=== PATIENT | male | born 1970 | race Caucasian/White ===

== ENCOUNTER → 2016-12-05 | Outpatient (CLI) | payer MEDICARE, MEDICAID ==
[~2016-12-05] MED LIST: ISOVUE-370 76% 100ML VIAL (Q9967) As Ordered ONE
--- NOTE | 2016-12-05 16:25 | REP ---
CT HEAD WITHOUT AND WITH CONTRAST: HISTORY: Confusion. CONTRAST: Isovue-370, 75 mL. There is no intraparenchymal hemorrhage, mass or midline shift. A small developmental venous anomaly is present in the right parietal lobe. There is no abnormal enhancement. The ventricular system is normal in appearance. There is no extracerebral collection. The visualizes sinuses are clear. IMPRESSION: There is no intracranial lesion. Signed by Chuck Nagel MD 12/05/2016 04:29 P
== END ==
LOC: M RAD 15:34
PROVIDERS: ATTEND Psychiatry & Neurology Neurology
DX: R41.0 Disorientation, unspecified (principal)
CPT/HCPCS: 70470; Q9967

== ENCOUNTER 2018-02-01 14:51 | Emergency (ER) | payer MEDICARE, MEDICAID, SELFPAY | END 2018-02-01 16:45 | disposition home or self-care (01) | LOC: M ED 14:51 | DX: S99.912A Unspecified injury of left ankle, initial encounter (principal); X50.9XXA Other and unspecified overexertion or strenuous movements or postures, initial encounter; Y92.018 Other place in single-family (private) house as the place of occurrence of the external cause; J44.9 Chronic obstructive pulmonary disease, unspecified; G43.909 Migraine, unspecified, not intractable, without status migrainosus; F41.9 Anxiety disorder, unspecified; M81.0 Age-related osteoporosis without current pathological fracture; K44.9 Diaphragmatic hernia without obstruction or gangrene | CPT/HCPCS: 73610 ==

== ENCOUNTER 2018-02-08 20:25 | Emergency (ER) | payer MEDICARE, MEDICAID ==
[2018-02-08] MEDS: CLINDAMYCIN 150 MG CAP PO (20:43)
[2018-02-08] MEDS: KETOROLAC TROMETHAMINE 10 MG TAB PO (20:43)
[2018-02-08] MEDS: NORCO 5/325MG TABLET (BULK FOR ED) PO (20:44)
== END 2018-02-08 20:50 | disposition home or self-care (01) ==
LOC: M ED 20:25
DX: M76.62 Achilles tendinitis, left leg (principal); J44.9 Chronic obstructive pulmonary disease, unspecified; F17.210 Nicotine dependence, cigarettes, uncomplicated
CPT/HCPCS: 99283

== ENCOUNTER 2018-07-03 16:31 | Emergency (ER) | payer MEDICARE, MEDICAID ==
[~2018-07-03] VITALS: Ht 165.1 cm; Wt 48.6 kg
[~2018-07-03 16:31] MED LIST changes: +CLEO300C2 PO; +COMBAER6; -ISOVUE-370 76% 100ML VIAL (Q9967) As Ordered ONE; +KETO10TAB PO; +MIRT15TA3; +NORCOTAB PO; +SPIR1CAP INH
[2018-07-03 16:32] VITALS: BP 147/87
== END 2018-07-03 19:11 | disposition left against medical advice (07) ==
LOC: M ED 16:31
DX: Z53.29 Procedure and treatment not carried out because of patient's decision for other reasons (principal)

== ENCOUNTER 2018-11-04 13:36 | Emergency (ER) | payer MEDICARE, MEDICAID ==
[~2018-11-04] VITALS: Ht 165.1 cm; Wt 105.0 kg
[~2018-11-04 13:36] MED LIST changes: +HYDR-3715 PO; -NORCOTAB PO
[2018-11-04 13:37] VITALS: BP 142/93
[2018-11-04] MEDS ORDERED: SPIR1CAP (13:42)
[2018-11-04] MEDS ORDERED: COMBAER6 (13:42)
[2018-11-04] MEDS ORDERED: ADACEL/BOOSTRIX VACCINE (DIPHTH/PERTUSS/ACELL/TETANUS)0.5ML SYR (90715) IM ONE (14:30)
[2018-11-04] MEDS ORDERED: LIDOCAINE W/EPINEPHRINE 1% 20ML VIAL SC ONE (14:30)
[2018-11-04] MEDS ORDERED: NEOSPORIN OINT 0.9 GM PKT (FLOOR STOCK) TOP ONE (15:00)
[2018-11-05] MEDS ORDERED: KEFL500C17 PO (09:21)
== END 2018-11-04 15:18 | disposition home or self-care (01) ==
LOC: M ED 13:36
DX: S81.011A Laceration without foreign body, right knee, initial encounter (principal); W26.0XXA Contact with knife, initial encounter; Y92.099 Unspecified place in other non-institutional residence as the place of occurrence of the external cause; Y93.89 Activity, other specified; Y99.9 Unspecified external cause status; I10 Essential (primary) hypertension; G43.909 Migraine, unspecified, not intractable, without status migrainosus; Z72.0 Tobacco use; F12.10 Cannabis abuse, uncomplicated; Z79.899 Other long term (current) drug therapy

== ENCOUNTER 2018-11-05 07:13 | Emergency (ER) | payer MEDICARE, MEDICAID ==
[~2018-11-05] VITALS: Ht 165.1 cm; Wt 47.7 kg
[~2018-11-05 07:13] MED LIST changes: +SPIR1CAP
[2018-11-05] MEDS ORDERED: KETOROLAC 60 MG/2 ML VIAL (J1885) IM ONE (07:30)
[2018-11-05] MEDS ORDERED: KEFL500C17 PO (09:21)
[2018-11-05 09:26] VITALS: BP 154/95
--- NOTE | 2018-11-05 13:48 | REP ---
RIGHT KNEE, FOUR VIEWS: HISTORY: Possible foreign body. There is no acute fracture or dislocation. The joint spaces are normal in appearance. There is no radiopaque foreign body. IMPRESSION: There is no radiopaque foreign body. Electronically Signed by Chuck Nagel MD 11/05/2018 01:57 P
== END 2018-11-05 09:34 | disposition home or self-care (01) ==
LOC: M ED 07:13
DX: L03.115 Cellulitis of right lower limb (principal); I10 Essential (primary) hypertension; J45.909 Unspecified asthma, uncomplicated; J43.9 Emphysema, unspecified; F41.9 Anxiety disorder, unspecified; G43.909 Migraine, unspecified, not intractable, without status migrainosus; F17.210 Nicotine dependence, cigarettes, uncomplicated
CPT/HCPCS: 73564; 96372; 99283; J1885

== ENCOUNTER 2018-12-05 18:57 | Observation (INO) | payer MEDICARE, MEDICAID ==
[~2018-12-05] VITALS: Ht 167.6 cm; Wt 48.3 kg
[~2018-12-05 18:57] MED LIST changes: +KEFL500C17 PO
[2018-12-05 19:27] LABS: BASO # 0.1 10^3/uL (0.0-0.2); BASO % 0.8 % (0.0-1.0); EOS # 0.1 10^3/uL (0.0-0.50); EOS % 1.4 % (0.0-3.0); HEMATOCRIT 44.5 % (42.0-52.0); HEMOGLOBIN 15.4 g/dl (13.5-17.5); LYMPH # 1.9 10^3/uL (1.5-4.5); LYMPH % 25.7 % (24.0-44.0); MEAN CORPUSCULAR HEMOGLOBIN 31.4 pg (27.0-33.0); MEAN CORPUSCULAR HGB CONC 34.6 g/dl (32.0-36.5); MEAN CORPUSCULAR VOLUME 90.8 fl (80.0-96.0); MONO # 0.9 10^3/uL (0.0-0.8); MONO % 12.6 % (0.0-5.0); NEUTROPHILS # 4.3 10^3/uL (1.8-7.7); NEUTROPHILS % 59.1 % (36.0-66.0); PLATELET COUNT, AUTOMATED 355 10^3/uL (150-450); WHITE BLOOD COUNT 7.3 10^3/uL (4.0-10.0)
[2018-12-05 19:52] LABS: BLOOD UREA NITROGEN 16 MG/DL (7-18); CARBON DIOXIDE LEVEL 29 MEQ/L (21-32); CHLORIDE LEVEL 107 MEQ/L (98-107); CPK CREATINE PHOSPHOKINASE 46 U/L (39-308); GLOMERULAR FILTRATION RATE > 60.0 (>56); GLUCOSE, FASTING 117 MG/DL (70-100); MB/CK RELATIVE INDEX 4.35 (< OR =4); POTASSIUM SERUM 3.9 MEQ/L (3.5-5.1); SODIUM LEVEL 140 MEQ/L (136-145); TROPONIN I < 0.02 NG/ML (< 0.10)
--- NOTE | 2018-12-05 20:15 | REP ---
CHEST, PORTABLE: AP portable view of the chest is performed and compared to prior study of 08/18/2015. Diffuse mild interstitial fibrotic change is present unchanged since prior study with no definite new infiltrate. Heart is normal in size. Mediastinal silhouette is unchanged. IMPRESSION: Stable chronic findings without acute infiltrate. Electronically Signed by Jorge Ivy MD 12/07/2018 12:52 P
[2018-12-05] MEDS ORDERED: ISOVUE-370 76% 100ML VIAL (Q9967) As Ordered ONE (20:29)
--- NOTE | 2018-12-05 21:37 | REPVR ---
EXAM: CT Angiography Chest With Contrast EXAM DATE/TIME: 12/05/2018 8:47 PM CLINICAL HISTORY: 48 years old, male; Chest pain; Additional info: R/O pe TECHNIQUE: Imaging protocol: Axial computed tomographic angiography images of the chest with intravenous contrast using CT angiography protocol. Coronal and sagittal reformatted images were created and reviewed. 3D rendering: MIP reconstructed images were created and reviewed. Radiation optimization: All CT scans at this facility use at least one of these dose optimization techniques: automated exposure control; mA and/or kV adjustment per patient size (includes targeted exams where dose is matched to clinical indication); or iterative reconstruction. Contrast material: ISOVUE 370; Contrast volume: 75 ml; Contrast route: IV COMPARISON: CR PORTABLE CHEST X-RAY 12/05/2018 7:16 PM FINDINGS: No focal pulmonary artery filling defect to suggest acute pulmonary embolus. No thoracic aortic aneurysm or dissection. No enlarged mediastinal lymph nodes. No pleural effusion or pneumothorax. Pulmonary vascular/interstitial pattern does not suggest active pulmonary edema. No suspicious lung mass or air space process. No central endobronchial lesion. Diffuse emphysema in the lungs with pattern suggesting centrilobular variant. Limited visualization of upper abdomen shows no concerning finding. Bony structures show no acute fracture or destructive process. Cervical spine fixation hardware is present. IMPRESSION: No evidence of acute pulmonary embolus. No other acute or concerning focal intrathoracic abnormality. Electronically signed by: Sunny Chan On 12/05/2018 21:37:41 PM
[2018-12-05 23:08] LABS: CK-MB VALUE MASS 1.7 NG/ML (<3.6); CPK CREATINE PHOSPHOKINASE 45 U/L (39-308); MB/CK RELATIVE INDEX 3.78 (< OR =4); TROPONIN I < 0.02 NG/ML (< 0.10)
[2018-12-06] VITALS (10 sets, daily range): BP systolic 118–198; BP diastolic 74–111
[2018-12-06] MEDS ORDERED: SPIR1CAP INH (00:19)
[2018-12-06] MEDS ORDERED: COMBAER6 INH (00:19)
[2018-12-06] MEDS ORDERED: IPRATROPIUM 0.5MG/ALBUTEROL 2.5MG INH SOL UD 3ML (DUONEB)(J7620) NEB PRN (00:45)
[2018-12-06] MEDS ORDERED: MOM 30ML SUSPENSION UDC PO PRN (00:45)
[2018-12-06] MEDS ORDERED: ACETAMINOPHEN TAB 650MG DOSE (2X325MG) PO PRN (00:45)
[2018-12-06] MEDS ORDERED: MAALOX 30 ML SUSP *UDC PO PRN (00:45)
--- NOTE | 2018-12-06 01:10 | HPEPDOC ---
General Date of Admission 12.06.18 Date of Service: Dec 06, 2018 Chief Complaint The patient is a 48-year-old male admitted with a reason for visit of Chest Pressure. History of Present Illness 48m with hx of copd, chronic pain with a spinal stimulator, cervical fusion, "stress heart attack" at age 15, presents with syncope. Pt reports multiple episodes over the past two days. There does not seem to be any provocation. he reports palpitations and sharp stabbing chest pain just prior to blacking out. On most occasions he did not lose consciousness and was able to catch himself before falling. But on at least one occasion he did fall and strike his forehead on the floor. Besides the above episodes he also describes edema in his hands and feet every morning, dyspnea on exertion, intermittent claudication, and weight loss. He also reports urinating less frequent but when he does have to go there is usually urgency. A full ROS was performed and was negative except as documented above. Home Medications Scheduled Tiotropium [place] (Spiriva) 18 Mcg Cap.w.dev, 1 INHALATION INH DAILY, (Reported) Scheduled PRN Ipratropium/Albuterol Sulfate (Combivent Respimat 20-100 Mcg) 4 Gm Mist.inhal, 1 PUFF INH QID PRN for SHORTNESS OF BREATH, (Reported) Allergies Coded Allergies: morphine (Verified Adverse Reaction, Intermediate, convulsions, 12/05/18) Past Medical History Medical History as above Surgical History as above Family History Significant Family History: No pertinent family hx Social History * Smoker: current smoker, less than 1 pack/day, cigarettes, other Alcohol: Denies Drugs: denies A-FIB/CHADSVASC A-FIB History Current/History of A-Fib/PAF?: No Current PO Anticoag Therapy: No Age/Risk Factor Scoring CHADSVASC: CHADSVASC Response (Comments) Value Age Risk Factor Age < 65 years old 0 Gender Risk Factor Male 0 Hx of CHF No 0 Hx of HTN No 0 Hx of Stroke/TIA/or VTE No 0 Hx of Diabetes No 0 Hx of Vascular Disease No 0 Total 0 Treatment Treatment ordered: NONE Physical Examination General Exam: Positive: Alert, Cooperative, No Acute Distress, Other (temporal wasting) Eye Exam: Positive: PERRLA, Conjunctiva & lids normal, EOMI; Negative: Sclera icteric ENT Exam: Positive: Atraumatic, Mucous membr. moist/pink, Pharynx Normal Neck Exam: Positive: Supple; Negative: JVD, thyromegaly Chest Exam: Positive: Clear to auscultation, Normal air movement Heart Exam: Positive: Rate Normal, Regular Rhythm, Normal S1, Normal S2; Negative: Murmurs, Rubs Abdomen Exam: Positive: Normal bowel sounds, Soft; Negative: Tenderness, Hepatospenomegaly Extremity Exam: Positive: Normal pulses; Negative: Clubbing, Cyanosis, Edema Skin Exam: Positive: Nl turgor and temperature; Negative: Breakdown, Lesion Neuro Exam: Positive: Normal Gait, Normal Speech, Cranial Nerves 3-12 NL, Reflexes 2+ Psych Exam: Positive: Mental status NL, Mood NL, Oriented x 3 Vital Signs Vital Signs Date Time Temp Pulse Resp B/P (MAP) Pulse Ox O2 Delivery O2 Flow Rate FiO2 12/05/18 23:30 58 14 123/72 (89) 96 Room Air 12/05/18 18:58 97.8 Laboratory Data Labs 24H Laboratory Tests 2 12/05/18 19:16: Immature Granulocyte % (Auto) 0.4, White Blood Count 7.3, Red Blood Count 4.90, Hemoglobin 15.4, Hematocrit 44.5, Mean Corpuscular Volume 90.8, Mean Corpuscular Hemoglobin 31.4, Mean Corpuscular Hemoglobin Concent 34.6, Red Cell Distribution Width 13.8, Platelet Count 355, Neutrophils (%) (Auto) 59.1, Lymphocytes (%) (Auto) 25.7, Monocytes (%) (Auto) 12.6H, Eosinophils (%) (Auto) 1.4, Basophils (%) (Auto) 0.8, Neutrophils # (Auto) 4.3, Lymphocytes # (Auto) 1.9, Monocytes # (Auto) 0.9H, Eosinophils # (Auto) 0.1, Basophils # (Auto) 0.1, Nucleated Red Blood Cells % (auto) 0.0, Anion Gap 4L, Glomerular Filtration Rate > 60.0, Blood Urea Nitrogen 16, Creatinine 1.00, Sodium Level 140, Potassium Level 3.9, Chloride Level 107, Carbon Dioxide Level 29, Calcium Level 9.0, Total Creatine Kinase 46, Creatine Kinase MB 2.0, Creatine Kinase MB Relative Index 4.35H, Troponin I < 0.02 12/05/18 22:35: Total Creatine Kinase 45, Creatine Kinase MB 1.7, Creatine Kinase MB Relative Index 3.78, Troponin I < 0.02 CBC/BMP Laboratory Tests 12/05/18 19:16 Red Blood Count 4.90, Mean Corpuscular Volume 90.8, Mean Corpuscular Hemoglobin 31.4, Mean Corpuscular Hemoglobin Concent 34.6, Red Cell Distribution Width 13.8, Neutrophils (%) (Auto) 59.1, Lymphocytes (%) (Auto) 25.7, Monocytes (%) (Auto) 12.6 H, Eosinophils (%) (Auto) 1.4, Basophils (%) (Auto) 0.8, Neutrophils # (Auto) 4.3, Lymphocytes # (Auto) 1.9, Monocytes # (Auto) 0.9 H, Eosinophils # (Auto) 0.1, Basophils # (Auto) 0.1, Calcium Level 9.0, Total Creatine Kinase 46 Assessment/Plan 48m p/w atypical chest pain, palpitations, and near syncopal episodes keep on observation monitor telemetry for arrhythmias none noted so far serial troponins echo would get cardio input however could be done as outpatient copd continue spiriva and duo nebs claudication, dyspnea on exertion outpatient ischemic eval and vascular eval Plan / VTE VTE Prophylaxis Ordered?: Yes WALTER REYES MD Dec 06, 2018 01:10
[2018-12-06 06:43] LABS: CK-MB VALUE MASS 1.5 NG/ML (<3.6); CPK CREATINE PHOSPHOKINASE 33 U/L (39-308); MB/CK RELATIVE INDEX 4.55 (< OR =4); TROPONIN I < 0.02 NG/ML (< 0.10)
--- NOTE | 2018-12-06 07:44 | ECGEPIP ---
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
--- NOTE | 2018-12-06 07:49 | ECGEPIP ---
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
[2018-12-06] MEDS: TIOTROPIUM INHALER/CAPSULE (SPIRIVA) INH SCH (08:18)
[2018-12-06] MEDS: DOCUSATE SODIUM 100 MG CAP PO SCH ×2 (10:31→20:28)
[2018-12-06] MEDS: ENOXAPARIN 40 MG/0.4 ML SYRINGE (J1650) SC SCH (10:31)
--- NOTE | 2018-12-06 14:01 | CR ---
DATE OF CONSULTATION: 12/06/2018 REASON FOR CONSULTATION: Syncopal episodes with positive cardiac history. Mr. Dee is a 48-year-old male who presented to the emergency department with an episode of syncope in his garage. He had recently experienced episodes of near syncope approximately 2 days ago when he was in a store with his ex-. Standing, he began to feel lightheaded, experienced chest pressure with tingling down his arm, and then his vision began to fade to black. He was able to stabilize himself by holding onto something; and after about a minute or so, the sensation passed. Yesterday, he had two episodes of near syncope and one episode of full syncope. The first episode of near syncope, he was walking across his garage and began to experience the same sensation of midsternal chest pressure with tingling down the left arm, lightheadedness, difficulty breathing, and closing off of his vision. Once he stopped, it got better. The second time, he was in the process of standing up and experienced similar symptoms. So, he sat back down. The third time, he was walking, stopped, and was unable to relieve the sensation, and ended up falling down in his garage onto his head. He states that at the age of 15, he also experienced an episode of chest pressure with palpitations that ended up being called a heart attack. He underwent stress testing for this and does not recall the results. He later underwent stress testing in [id number] for both an exercise and a chemical stress test. He is unaware of the results, as it was done in [place], [place], but he does remember that the automobile sales consultant said that he would likely need stents in a couple of years, but he never followed up. In 2011 and 2012, he also was having unspecified difficulties, this time with heart failure, he says, and required an echocardiogram to be done. This was in [place], [place], and he does not recall the results at that time and does not recall what medications he was on. He has only lived in [place] for the past 3 years and states that when he moved here, he was taken off of many of his medications, including antipsychotics, narcotics, antihypertensives, and others that he is unaware of. On review of systems, he also notes that he gets intermittent edema in both his hands and feet. He also gets dyspnea on exertion after walking up a flight of stairs, as well as chest pressure after said exertion. He states after walking a city block, he feels incredible leg heaviness and fatigue. He denies any fevers, chills, night sweats, recent unexpected weight change. He does report urinary urgency but not frequency. He denies any nausea, vomiting, abdominal pain. He also denies musculoskeletal complaints. He also currently denies headache, dizziness, lightheadedness, vision changes, neck pain or swelling, or current chest pain, pressure, or difficulty breathing. PAST MEDICAL HISTORY: His history is spotty due to the fact that the medications that he previously described himself being on and the medical history that he also describes do not exactly match up. 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 Possible heart failure. PAST SURGICAL HISTORY: C2 through C7 cervical fractures with repair in 2007 from an ice skating accident. A torn left rotator cuff with surgical repair. A surgical removal of a left testicular mass in [address] Escamilla. A polypectomy done in [place] by Dr. Denise with allegedly aggressively cancerous polyps. SOCIAL HISTORY: He denies alcohol use. He admits to smoking two packs of cigarettes per week. He admits to two episodes of heroin use, including one single episode of intravenous (IV) heroin use in December of 2017. Denies any cocaine use. Admits to marijuana use and CBD oil use. He does not take any supplements. He does not work as he is on Disability from his ice skating accident. He lives by himself. He has no pets in his home. FAMILY HISTORY: His father of a heart attack at age 68. His father also had coronary artery disease. His mother at the age of 50 of ovarian cancer. ALLERGIES: See below. HOME MEDICATIONS: Albuterol and Spiriva inhaler. PHYSICAL EXAMINATION: VITAL SIGNS: Temperature 97.7, pulse 73, respiratory rate of 18, blood pressure 118/74, pulse oximetry 96% on room air, weight 47.7 kg, body mass index (BMI) of 17. GENERAL APPEARANCE: The patient is a 48-year-old male who appears younger than stated age and is very thin. He is in no acute distress and is pleasant and cooperative. HEENT: Head is normocephalic, atraumatic.. Extraocular movements intact (EOMI). Sclerae anicteric. No pharyngeal erythema. Mucous membranes moist. NECK: No jugular venous distention (JVD) or carotid bruits on auscultation. CARDIOVASCULAR: Regular rate and rhythm. Normal S1 and S2. No murmurs, gallops, rubs. RESPIRATORY: Clear to auscultation bilaterally with full breath sounds bilaterally. No wheezes, crackles, rhonchi. ABDOMEN: Soft, nontender, nondistended. Bowel sounds present. No hepatosplenomegaly. No masses or ecchymosis. Tattoo present on abdomen. EXTREMITIES: 2+ radial pulses bilaterally. 2+ dorsal pedal pulses bilaterally. No cyanosis or peripheral edema appreciated on examination. NEUROLOGIC: No focal deficits appreciated. LABORATORY WORK: Laboratories: White blood cell count of 7.3, hemoglobin of 15.4, hematocrit of 44.5, platelet count of 355. Chemistry: Sodium of 140, potassium 3.9, chloride 107, CO2 29, BUN 16, creatinine 1.0, glucose 117, calcium 9, total CK is 33, CK-MB 1.5, troponins trended since 12/05/2018 at 1916 with last being done at 12/06/2018 at 0533 have been negative. Lipid panel pending. HIV antigen antibody combo pending. IMAGING: Chest x-ray: Stable chronic findings without acute infiltrate. CT angiography of the chest: No evidence of acute pulmonary embolus. No other acute or concerning focal intrathoracic abnormality. Electrocardiogram (EKG) from 12/05/2018 shows regular rate, sinus rhythm, normal AK, QRS, and QTc intervals. While there are some T wave abnormalities, they are not in consecutive leads. There is an incomplete right bundle branch block. I do not see any evidence of ischemia. There is a possible Q wave in V1, V2, but I am not sure it would meet criteria to be significant. ASSESSMENT AND PLAN: The patient is a 48-year-old male with syncope of likely cardiogenic origin, particularly given his symptoms, as well as history of cardiac complaints. Since we have no documentation of these, we will be drawing a lipid panel and trying to obtain some of the results of the testing he has had prior. His echocardiogram is still pending. Orthostatics were not done initially, so we will also draw these since some of his symptoms appear to be merely due to orthostatic hypotension. We will wait to see what the results of these studies show before moving forward. He may be appropriate for outpatient followup, given his negative troponins. Of concern, though, are his consistent symptoms of exertional dyspnea with chest pressure and palpitations. So, we will continue to monitor these closely. He should remain on telemetry for this. LEATHA
[2018-12-06] MEDS: ALPRAZolam 0.5 MG TAB PO PRN ×2 (16:17→23:48)
--- NOTE | 2018-12-06 16:22 | IPNPDOC ---
Date Seen The patient was seen on 12/06/18. Progress Note SUBJECTIVE: 48 Y male, h/o COPD and chronic low back pain presents with chest pain and syncope no events overnight Reviews of systems no fever no chills no sob no chest pain no abdominal pain no diarrhea OBJECTIVE PHYSICAL EXAMINATION: VITAL SIGNS: Please see below. GENERAL: AA ox3 HEENT: atraumatic CARDIOVASCULAR: S1 S2 regular no murmur RESPIRATORY: clear, no rales no murmur ABDOMINAL: soft BS + non tender EXTREMITIES: no edema NEUROLOGICAL: non focal PSYCHOLOGICAL: anxious but no acute psychosis LABORATORY DATA, IMAGING STUDIES, MICROBIOLOGY: Please see below. Echocardiogram: pending DVT prophylaxis ordered?: yes ASSESSMENT AND PLAN: 1. syncope and chest pain troponin negative Derrick Hand consult echo pending 2. COPD, stable 3. Chronic back pain, stable 4. DISPOSITION: may go home after galley boy consult. VS, I&O, 24H, Fishbone Vital Signs/I&O Vital Signs Date Time Temp Pulse Resp B/P (MAP) Pulse Ox O2 Delivery O2 Flow Rate FiO2 12/06/18 12:22 97 198/111 (140) 12/06/18 12:00 97.8 18 97 12/06/18 01:45 Room Air I&O- Last 24 Hours up to 6 AM 12/06/18 05:59 Intake Total 0 ml Output Total 600 ml Balance -600 ml Laboratory Data 24H LABS Laboratory Tests 2 12/05/18 19:16: Immature Granulocyte % (Auto) 0.4, White Blood Count 7.3, Red Blood Count 4.90, Hemoglobin 15.4, Hematocrit 44.5, Mean Corpuscular Volume 90.8, Mean Corpuscular Hemoglobin 31.4, Mean Corpuscular Hemoglobin Concent 34.6, Red Cell Distribution Width 13.8, Platelet Count 355, Neutrophils (%) (Auto) 59.1, Lymphocytes (%) (Auto) 25.7, Monocytes (%) (Auto) 12.6H, Eosinophils (%) (Auto) 1.4, Basophils (%) (Auto) 0.8, Neutrophils # (Auto) 4.3, Lymphocytes # (Auto) 1.9, Monocytes # (Auto) 0.9H, Eosinophils # (Auto) 0.1, Basophils # (Auto) 0.1, Nucleated Red Blood Cells % (auto) 0.0, Anion Gap 4L, Glomerular Filtration Rate > 60.0, Blood Urea Nitrogen 16, Creatinine 1.00, Sodium Level 140, Potassium Level 3.9, Chloride Level 107, Carbon Dioxide Level 29, Calcium Level 9.0, Total Creatine Kinase 46, Creatine Kinase MB 2.0, Creatine Kinase MB Relative Index 4.35H, Troponin I < 0.02 12/05/18 22:35: Total Creatine Kinase 45, Creatine Kinase MB 1.7, Creatine Kinase MB Relative Index 3.78, Troponin I < 0.02 12/06/18 05:33: Total Creatine Kinase 33L, Creatine Kinase MB 1.5, Creatine Kinase MB Relative Index 4.55H, Troponin I < 0.02 CBC/BMP Laboratory Tests 12/05/18 19:16 Red Blood Count 4.90, Mean Corpuscular Volume 90.8, Mean Corpuscular Hemoglobin 31.4, Mean Corpuscular Hemoglobin Concent 34.6, Red Cell Distribution Width 13.8, Neutrophils (%) (Auto) 59.1, Lymphocytes (%) (Auto) 25.7, Monocytes (%) (Auto) 12.6 H, Eosinophils (%) (Auto) 1.4, Basophils (%) (Auto) 0.8, Neutrophils # (Auto) 4.3, Lymphocytes # (Auto) 1.9, Monocytes # (Auto) 0.9 H, Eosinophils # (Auto) 0.1, Basophils # (Auto) 0.1, Calcium Level 9.0, Total Creatine Kinase 46 ELOY NATHAN MD Dec 06, 2018 16:22
[2018-12-06 20:31] LABS: CHOLESTEROL LEVEL 246 MG/DL (<200); CHOLESTEROL RISK RATIO 2.673 (<5); HDL CHOLESTEROL 92 MG/DL (>40); LDL CHOLESTEROL 134 MG/DL (<100); NON-HDL-C 154 MG/DL; TRIGLYCERIDES LEVEL 101 MG/DL (<150)
[2018-12-07 04:00] VITALS: BP 127/83
[2018-12-07 05:42] LABS: HEMATOCRIT 48.1 % (42.0-52.0); HEMOGLOBIN 16.3 g/dl (13.5-17.5); MEAN CORPUSCULAR HEMOGLOBIN 30.8 pg (27.0-33.0); MEAN CORPUSCULAR HGB CONC 33.9 g/dl (32.0-36.5); MEAN CORPUSCULAR VOLUME 90.8 fl (80.0-96.0); PLATELET COUNT, AUTOMATED 350 10^3/uL (150-450); WHITE BLOOD COUNT 7.3 10^3/uL (4.0-10.0)
[2018-12-07 06:02] LABS: ALBUMIN 3.2 GM/DL (3.2-5.2); ALT/SGPT 143 U/L (12-78); BILIRUBIN,TOTAL 0.5 MG/DL (0.2-1.0); BLOOD UREA NITROGEN 18 MG/DL (7-18); CALCIUM LEVEL 8.6 MG/DL (8.5-10.1); CARBON DIOXIDE LEVEL 28 MEQ/L (21-32); CHLORIDE LEVEL 110 MEQ/L (98-107); CREATININE FOR GFR 0.87 MG/DL (0.70-1.30); GLOMERULAR FILTRATION RATE > 60.0 (>56); GLUCOSE, FASTING 90 MG/DL (70-100); NT-PRO BNP 52 PG/ML (<125); POTASSIUM SERUM 3.9 MEQ/L (3.5-5.1); SODIUM LEVEL 141 MEQ/L (136-145); TOTAL PROTEIN 6.5 GM/DL (6.4-8.2)
[2018-12-07] MEDS: TIOTROPIUM INHALER/CAPSULE (SPIRIVA) INH SCH (07:21)
[2018-12-07 08:00] VITALS: BP 121/79
[2018-12-07] MEDS: DOCUSATE SODIUM 100 MG CAP PO SCH ×2 (09:00→19:38)
--- NOTE | 2018-12-07 09:03 | IPNPDOC ---
Subjective Date Seen The patient was seen on 12/07/18. Subjective Chief Complaint/HPI Patient seen at bedside, no acute events overnight. Patient denies any chest pain, lightheadedness, palpitations, numbness, tingling, difficulty breathing, nausea, or vomiting. Objective Physical Examination General Exam: Positive: Alert, Cooperative, No Acute Distress Eye Exam: Positive: EOMI; Negative: Sclera icteric ENT Exam: Positive: Atraumatic, Mucous membr. moist/pink, Pharynx Normal Neck Exam: Negative: JVD Chest Exam: Positive: Clear to auscultation, Normal air movement Heart Exam: Positive: Rate Normal, Regular Rhythm, Normal S1, Normal S2; Negative: Murmurs, Rubs Abdomen Exam: Positive: Normal bowel sounds, Soft; Negative: Tenderness, Hepatospenomegaly Extremity Exam: Positive: Normal pulses; Negative: Clubbing, Cyanosis, Edema Skin Exam: Positive: Nl turgor and temperature; Negative: Breakdown, Lesion Neuro Exam: Positive: Normal Gait, Normal Speech Psych Exam: Positive: Mental status NL, Mood NL, Oriented x 3 Assessment /Plan Assessment 1. Syncopal episodes - Will continue to await results of echocardiogram. Pending normal results of echo he is ok to go home. Plan/VTE VTE Prophylaxis Ordered?: Yes VS, I&O, 24H, Alejandrobonkate Vital Signs/I&O Vital Signs Date Time Temp Pulse Resp B/P (MAP) Pulse Ox O2 Delivery O2 Flow Rate FiO2 12/07/18 08:00 97.2 75 17 121/79 (93) 97 12/06/18 01:45 Room Air I&O- Last 24 Hours up to 6 AM 12/07/18 06:00 Intake Total 1700 ml Output Total 325 ml Balance 1375 ml Laboratory Data 24H LABS Laboratory Tests 2 12/07/18 05:26: Nucleated Red Blood Cells % (auto) 0.0, Anion Gap 3L, Glomerular Filtration Rate > 60.0, Blood Urea Nitrogen 18, Creatinine 0.87, Sodium Level 141, Potassium Level 3.9, Chloride Level 110H, Carbon Dioxide Level 28, Calcium Level 8.6, Aspartate Amino Transf (AST/SGOT) 82H, Alanine Aminotransferase (ALT/SGPT) 143H, Alkaline Phosphatase 75, Total Bilirubin 0.5, Total Protein 6.5, Albumin 3.2, AD-Psv-N-Type Natriuretic Peptide 52, Albumin/Globulin Ratio 0.97L CBC/BMP Laboratory Tests 12/07/18 05:26 Red Blood Count 5.30, Mean Corpuscular Volume 90.8, Mean Corpuscular Hemoglobin 30.8, Mean Corpuscular Hemoglobin Concent 33.9, Red Cell Distribution Width 13.8, Calcium Level 8.6, Aspartate Amino Transf (AST/SGOT) 82 H, Alanine Aminotransferase (ALT/SGPT) 143 H, Alkaline Phosphatase 75, Total Bilirubin 0.5, Total Protein 6.5, Albumin 3.2 GME ATTESTATION GME ATTESTATION My faculty preceptor for this patient encounter was physically present during the encounter and was fully available. All aspects of the patient interview, examination, medical decision making process, and medical care plan development were reviewed and approved by the faculty preceptor. The faculty preceptor is aware and concurs with the plan as stated in the body of this note and will attest to such by his/her cosignature. RAMON AIKEN DO Dec 07, 2018 09:03
[2018-12-07] MEDS: ENOXAPARIN 40 MG/0.4 ML SYRINGE (J1650) SC SCH (09:48)
[2018-12-07 12:00] VITALS: BP 124/75
[2018-12-07 12:02] LABS: HIV 1&2 SCREEN CENTAUR NEGATIVE (NEGATIVE)
[2018-12-07] MEDS: ALPRAZolam 0.5 MG TAB PO PRN ×2 (14:17→19:38)
--- NOTE | 2018-12-07 15:34 | IPNPDOC ---
Date Seen The patient was seen on 12/07/18. Progress Note UBJECTIVE: 48 Y male, h/o COPD and chronic low back pain as well as schizophrenia presents with chest pain and syncope no events overnight However this AM, he told nursing staff that he has history of schizophrenia and did not take medicines for about 3 years and now very anxious and angry and has suicidal ideations Reviews of systems no fever no chills no sob no chest pain no abdominal pain no diarrhea +anxious and suicidal ideations OBJECTIVE PHYSICAL EXAMINATION: VITAL SIGNS: Please see below. GENERAL: AA ox3 HEENT: atraumatic CARDIOVASCULAR: S1 S2 regular no murmur RESPIRATORY: clear, no rales no murmur ABDOMINAL: soft BS + non tender EXTREMITIES: no edema NEUROLOGICAL: non focal PSYCHOLOGICAL: anxious but no acute psychosis LABORATORY DATA, IMAGING STUDIES, MICROBIOLOGY: Please see below. Echocardiogram: pending DVT prophylaxis ordered?: yes ASSESSMENT AND PLAN: 1. 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 suicidal ideation with history of schizophrenia 1 to 1 sitter called psych consult 3. COPD, stable 4. Chronic back pain, stable VS, I&O, 24H, [facility] Vital Signs/I&O Vital Signs Date Time Temp Pulse Resp B/P (MAP) Pulse Ox O2 Delivery O2 Flow Rate FiO2 12/07/18 12:00 98.1 73 19 124/75 (91) 98 12/06/18 01:45 Room Air I&O- Last 24 Hours up to 6 AM 12/07/18 05:59 Intake Total 1800 ml Output Total 325 ml Balance 1475 ml Laboratory Data 24H LABS Laboratory Tests 2 12/07/18 05:26: Nucleated Red Blood Cells % (auto) 0.0, Anion Gap 3L, Glomerular Filtration Rate > 60.0, Blood Urea Nitrogen 18, Creatinine 0.87, Sodium Level 141, Potassium Level 3.9, Chloride Level 110H, Carbon Dioxide Level 28, Calcium Level 8.6, Aspartate Amino Transf (AST/SGOT) 82H, Alanine Aminotransferase (ALT/SGPT) 143H, Alkaline Phosphatase 75, Total Bilirubin 0.5, Total Protein 6.5, Albumin 3.2, PV-Chl-B-Type Natriuretic Peptide 52, Albumin/Globulin Ratio 0.97L CBC/BMP Laboratory Tests 12/07/18 05:26 Red Blood Count 5.30, Mean Corpuscular Volume 90.8, Mean Corpuscular Hemoglobin 30.8, Mean Corpuscular Hemoglobin Concent 33.9, Red Cell Distribution Width 13.8, Calcium Level 8.6, Aspartate Amino Transf (AST/SGOT) 82 H, Alanine Aminotransferase (ALT/SGPT) 143 H, Alkaline Phosphatase 75, Total Bilirubin 0.5, Total Protein 6.5, Albumin 3.2 ELOY NATHAN MD Dec 07, 2018 15:34
[2018-12-07 16:00] VITALS: BP 122/79
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
[2018-12-07 20:00] VITALS: BP 141/89
[2018-12-07 23:59] VITALS: BP 137/85
[2018-12-08 04:00] VITALS: BP 154/80
[2018-12-08] MEDS: ALPRAZolam 0.5 MG TAB PO PRN (04:47)
[2018-12-08] MEDS: TIOTROPIUM INHALER/CAPSULE (SPIRIVA) INH SCH (07:27)
[2018-12-08 08:00] VITALS: BP 110/77
[2018-12-08] MEDS: ENOXAPARIN 40 MG/0.4 ML SYRINGE (J1650) SC SCH (08:04)
[2018-12-08] MEDS: DOCUSATE SODIUM 100 MG CAP PO SCH ×2 (08:04→20:40)
--- NOTE | 2018-12-08 10:17 | IPNPDOC ---
Date Seen The patient was seen on 12/08/18. Progress Note UBJECTIVE: 48 Y male, h/o COPD and chronic low back pain as well as schizophrenia presents with chest pain and syncope c/o suicidal and consulted with psych no events overnight Reviews of systems no fever no chills no sob no chest pain no abdominal pain no diarrhea OBJECTIVE PHYSICAL EXAMINATION: VITAL SIGNS: Please see below. GENERAL: AA ox3; 1 to 1 sitter in the room HEENT: atraumatic CARDIOVASCULAR: S1 S2 regular no murmur RESPIRATORY: clear, no rales no murmur ABDOMINAL: soft BS + non tender EXTREMITIES: no edema NEUROLOGICAL: non focal PSYCHOLOGICAL: no acute psychosis LABORATORY DATA, IMAGING STUDIES, MICROBIOLOGY: Please see below. Echocardiogram: pending DVT prophylaxis ordered?: yes ASSESSMENT AND PLAN: 1. 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 suicidal ideation with history of schizophrenia 1 to 1 sitter Psych consulted and recommends in-hospital mental health care 3. COPD, stable 4. Chronic back pain, stable VS, I&O, 24H, [place] Vital Signs/I&O Vital Signs Date Time Temp Pulse Resp B/P (MAP) Pulse Ox O2 Delivery O2 Flow Rate FiO2 12/08/18 08:00 97.7 66 18 110/77 (88) 97 12/06/18 01:45 Room Air I&O- Last 24 Hours up to 6 AM 12/08/18 06:00 Intake Total 740 ml Output Total 300 ml Balance 440 ml ELOY NATHAN MD Dec 08, 2018 10:17
[2018-12-08 16:00] VITALS: BP 139/79
[2018-12-08] MEDS: LORazepam 0.5 MG TAB PO PRN (20:40)
[2018-12-08 23:59] VITALS: BP 121/77
[2018-12-09] MEDS: TIOTROPIUM INHALER/CAPSULE (SPIRIVA) INH SCH (07:21)
[2018-12-09 08:00] VITALS: BP 110/78
[2018-12-09] MEDS: LORazepam 0.5 MG TAB PO PRN ×2 (09:15→17:28)
[2018-12-09] MEDS: ENOXAPARIN 40 MG/0.4 ML SYRINGE (J1650) SC SCH (09:15)
[2018-12-09] MEDS: DOCUSATE SODIUM 100 MG CAP PO SCH ×2 (09:15→20:55)
--- NOTE | 2018-12-09 13:43 | IPNPDOC ---
Date Seen The patient was seen on 12/09/18. Progress Note UBJECTIVE: 48 Y male, h/o COPD and chronic low back pain as well as schizophrenia presents with chest pain and syncope c/o suicidal and consulted with psych no events overnight Reviews of systems no fever no chills no sob no chest pain no abdominal pain no diarrhea OBJECTIVE PHYSICAL EXAMINATION: VITAL SIGNS: Please see below. GENERAL: AA ox3; 1 to 1 sitter in the room HEENT: atraumatic CARDIOVASCULAR: S1 S2 regular no murmur RESPIRATORY: clear, no rales no murmur ABDOMINAL: soft BS + non tender EXTREMITIES: no edema NEUROLOGICAL: non focal PSYCHOLOGICAL: no acute psychosis LABORATORY DATA, IMAGING STUDIES, MICROBIOLOGY: Please see below. Echocardiogram: pending DVT prophylaxis ordered?: yes ASSESSMENT AND PLAN: 1. 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 suicidal ideation with history of schizophrenia 1 to 1 sitter appreciated psych input 3. COPD, stable 4. Chronic back pain, stable 5. Dispo: per psych recommendation and he needs in-hospital mental health treatment; since bed is not available at [facility], so please discuss with case manager specialist or social director VS, I&O, 24H, [facility] Vital Signs/I&O Vital Signs Date Time Temp Pulse Resp B/P (MAP) Pulse Ox O2 Delivery O2 Flow Rate FiO2 12/09/18 08:00 97.1 72 18 110/78 (89) 99 12/06/18 01:45 Room Air I&O- Last 24 Hours up to 6 AM 12/09/18 06:00 Intake Total 420 ml Output Total 1400 ml Balance -980 ml ELOY NTAHAN MD Dec 09, 2018 13:43
--- NOTE | 2018-12-09 13:44 | MHIPNPDOC ---
[facility] Progress Note Progress Note I was asked to revisit the patient as he has been waiting on the medical unit as there are no beds on [facility] and that the patient had requested to leave, spoke to the nursing staff who report the patient frequently has been changing his mind but is fairly selective. Briefly met with patient who appeared to agree to come into the [facility], he still appeared to be much the same as the initial interview and voiced no wants to leave, reassured that beds will open tomorrow and that we can begin treatment then. The patient appeared calm to myself and recognized me, but report from nursing suggests that he does become agitated, recommend a small dose of Seroquel 50mg QHS PO to help with sleep, ativan can be useful but might also disinhibit him. Vital Signs Vital Signs Date Time Temp Pulse Resp B/P (MAP) Pulse Ox O2 Delivery O2 Flow Rate FiO2 12/09/18 08:00 97.1 72 18 110/78 (89) 99 12/06/18 01:45 Room Air Current Medications Current Medications Acetaminophen (Tylenol Tab) 650 mg Q4H PRN PO PAIN OR FEVER; Start 12/06/18 at 00:45 Al Hydrox/Mg Hydrox/Simethicone (Mylanta) 10 ml DAILY PRN PO DYSPEPSIA; Start 12/06/18 at 00:45 Albuterol/ Ipratropium (Duoneb (Ipr 0.5mg/Alb 2.5mg)) 3 ml Q4HP PRN NEB SOB/WHEEZING Last administered on 12/06/18at 04:44; Start 12/06/18 at 00:45 Alprazolam (Xanax) 0.5 mg Q6HP PRN PO ANXIETY Last administered on 12/08/18at 04 :47; Start 12/06/18 at 15:45; Stop 12/08/18 at 19:53; Status DC Docusate Sodium (Colace) 100 mg BID PO Last administered on 12/09/18at 09:15; Start 12/06/18 at 09:00 Enoxaparin Sodium (Lovenox) 40 mg DAILY SC Last administered on 12/09/18at 09:15; Start 12/06/18 at 09:00 Home Med (Med Rec Complete!) ASDIRECTED XX ; Start 12/06/18 at 00:30; Stop 12/06/18 at 00:32; Status DC Lorazepam (Ativan) 0.5 mg Q6HP PRN PO ANXIETY Last administered on 12/09/18at 09:15; Start 12/08/18 at 20:00 Magnesium Hydroxide (Milk Of Magnesia) 30 ml DAILY PRN PO CONSTIPATION Last administered on 12/09/18at 09:15; Start 12/06/18 at 00:45 Quetiapine Fumarate (SEROquel) 50 mg QHS PO ; Start 12/09/18 at 21:00; Status UNV Tiotropium [place] (Spiriva Handihaler) 1 inhalation DAILY@0800 INH Last administered on 12/09/18at 07:21; Start 12/06/18 at 08:00 Allergies Coded Allergies: morphine (Verified Adverse Reaction, Intermediate, convulsions, 12/05/18) YEE WYNN DO Dec 09, 2018 13:44
[2018-12-09 16:00] VITALS: BP 135/62
[2018-12-09] MEDS: LORazepam 1 MG TAB PO PRN (20:56)
[2018-12-09] MEDS ORDERED: QUEtiapine FUMARATE 50 MG TAB PO SCH (21:00)
[2018-12-09 23:59] VITALS: BP 101/63
[2018-12-10 08:00] VITALS: BP 107/76
[2018-12-10] MEDS ORDERED: QUET5TAB PO (08:50)
[2018-12-10] MEDS ORDERED: NICOTINE 21MG/24HR 1 EA TRANSDERMAL TD SCH (09:00)
--- NOTE | 2018-12-10 09:10 | DSES ---
DATE OF ADMISSION: 12/05/2018 DATE OF DISCHARGE: PRINCIPAL DIAGNOSIS: Atypical chest pain with syncope. PRIMARY CARE PROVIDER: [facility] in [place]. HISTORY: The patient was admitted with syncope. He has a history of psychiatric disorders, chronic psychiatric medication. He has sharp stabbing chest pain and it feels like he is going to pass out. HOSPITAL COURSE: Patient admitted to a progressive care unit (PCU) bed. He had no arrhythmias during the course of his hospitalization. His cardiac enzymes were negative. He is seen in consultation by cardiology. That was done on 12/06/2018. An echocardiogram was ordered. Its results are still pending. SIGNIFICANT LABS: Most recent electrolytes were unremarkable. CBCs were normal. Cardiac enzymes were normal. HIV was negative. Angiographic CT of the chest was unremarkable. Echocardiogram is pending. PLAN: Patient is being transferred to mental health unit. He has been seen by psychiatry and they advised that due to stated suicidal ideation. I would like the echocardiogram report before he goes, but he probably could be transferred with result pending as he will still be in-house in case there is an unforeseen abnormality. I talked to the charge nurse and they will let me know when a bed opens up on the mental health unit.
[2018-12-10] MEDS ORDERED: OLANZapine ORAL DISINTEGRATING TAB 5MG PO PRN (09:45)
[2018-12-10] MEDS: ENOXAPARIN 40 MG/0.4 ML SYRINGE (J1650) SC SCH (10:42)
[2018-12-10] MEDS: LORazepam 1 MG TAB PO PRN (10:43)
[2018-12-10] MEDS: DOCUSATE SODIUM 100 MG CAP PO SCH (10:44)
--- NOTE | 2018-12-10 23:41 | ECHO ---
DATE OF PROCEDURE: 12/09/2018 AGE: 48 GENDER: Male. HEIGHT: 66 inches WEIGHT: 105 pounds BODY SURFACE AREA: 1.53 sq m INPATIENT: Progressive care unit (PCU) room 3222. REFERRING PHYSICIAN: Dr. Saul Prado INDICATION: Dyspnea/syncope. MEASUREMENTS: 2D Measurements: RV: 2.8 cm LV: 4.1 cm Septum: 0.8 cm Posterior wall: 0.8 cm Aortic root: 2.6 cm LA: 2.8 cm LVEF: 75% Doppler Measurements: AV: 0.9 m/s LVOT: 0.8 m/s MV-E: 59 A: 49 EA ratio: 1.2 Early mitral deceleration time: 216 ms E prime: 10.6 A prime: 9 E/E prime ratio: 5.6 PV: 0.9 m/s Pulmonary artery acceleration time: 140 ms PASP: 12 mmHg IVC: 1.0 cm COMMENTS: Normal sinus rhythm without intraventricular conduction disturbance. Technically challenging study in light of the patient's body habitus, but some diagnostically useful information was still obtained. Normal left ventricular size, wall thickness, and hyperkinetic wall motion. Normal left atrial size and Doppler assessment of left ventricle (LV) diastolic function and estimated mean left atrial pressure. Normal right heart chamber sizes and motion and Doppler estimated pulmonary arterial pressure. Normal inferior vena cava (IVC) size and collapse against an elevated central venous pressure. Could not visualize his valvular structures very well, but there did not appear to be any significant valve obstruction or insufficiency. Normal aortic root size. No apparent intracardiac mass or pericardial effusion.
== END 2018-12-10 14:03 ==
LOC: M ED 18:57 → M ED INP 18:58 → M PCU 12-06 02:08
PROVIDERS: ADMIT Hospitalist; ATTEND Hospitalist
DX: R07.89 Other chest pain (principal); R55 Syncope and collapse; R45.851 Suicidal ideations; J44.9 Chronic obstructive pulmonary disease, unspecified; G89.29 Other chronic pain; M43.22 Fusion of spine, cervical region; Z96.9 Presence of functional implant, unspecified; Z88.5 Allergy status to narcotic agent; F17.210 Nicotine dependence, cigarettes, uncomplicated; Z79.899 Other long term (current) drug therapy

== ENCOUNTER 2018-12-10 10:42 | Inpatient (IN) | payer MEDICARE, MEDICAID ==
[~2018-12-10] VITALS: Ht 167.6 cm; Wt 48.7 kg
[~2018-12-10 10:42] MED LIST changes: +COMBAER6 INH; +QUET5TAB PO
[2018-12-10 15:13] VITALS: BP 135/79
[2018-12-10] MEDS ORDERED: ACETAMINOPHEN TAB 650MG DOSE (2X325MG) PO PRN (15:30)
[2018-12-10] MEDS ORDERED: COMBIVENT RESPIMAT 100-20MCG INHALER 4GM INH PRN (15:30)
[2018-12-10 17:02] LABS: HEMATOCRIT 51.1 % (42.0-52.0); HEMOGLOBIN 17.2 g/dl (13.5-17.5); MEAN CORPUSCULAR HEMOGLOBIN 30.3 pg (27.0-33.0); MEAN CORPUSCULAR HGB CONC 33.7 g/dl (32.0-36.5); PLATELET COUNT, AUTOMATED 382 10^3/uL (150-450); RED BLOOD COUNT 5.68 10^6/uL (4.30-6.10); WHITE BLOOD COUNT 6.5 10^3/uL (4.0-10.0)
[2018-12-10 17:42] LABS: ALBUMIN 3.9 GM/DL (3.2-5.2); ALT/SGPT 229 U/L (12-78); BILIRUBIN,TOTAL 0.6 MG/DL (0.2-1.0); BLOOD UREA NITROGEN 20 MG/DL (7-18); C REACTIVE PROTEIN QUANTITATIV < 0.30 MG/DL (0.00-0.30); CALCIUM LEVEL 9.7 MG/DL (8.5-10.1); CARBON DIOXIDE LEVEL 30 MEQ/L (21-32); CHLORIDE LEVEL 99 MEQ/L (98-107); CK-MB VALUE MASS 1.3 NG/ML (<3.6); CPK CREATINE PHOSPHOKINASE 54 U/L (39-308); CREATININE FOR GFR 0.91 MG/DL (0.70-1.30); GLOMERULAR FILTRATION RATE > 60.0 (>56); GLUCOSE, FASTING 77 MG/DL (70-100); MB/CK RELATIVE INDEX 2.41 (< OR =4); SODIUM LEVEL 137 MEQ/L (136-145); TOTAL PROTEIN 7.3 GM/DL (6.4-8.2); TROPONIN I < 0.02 NG/ML (< 0.10)
[2018-12-10 18:12] VITALS: BP 139/80
[2018-12-10] MEDS ORDERED: hydrOXYzine 50 MG TAB PO PRN (20:15)
--- NOTE | 2018-12-10 20:22 | HPEPDOC ---
[facility] Medical History & Physical Date of Admission Dec 10, 2018 Date of Service: Dec 10, 2018 History and Physical CHIEF COMPLAINT: Bipolar Disorder HISTORY OF PRESENTING ILLNESS: 48 y/o white male with past medical history of copd, chronic pain with a spinal stimulator, cervical fusion, recently discharged from [facility] for atypical chest pain and near syncopal episode, with negative workup c/o suicidal ideation and diagnosed with bipolar disorder. [facility] He c/o anxieyt, poor appetite, and difficulty sleeping. He denies any headache, changes in vision, blurred vision,diplopia, scotomas, n/v/d/abdpain, dysuria, urgency,frequency, wt loss/wt gain, brbpr, melena, black tarry stools, chest pain,pressure,tightness,sob. He has a chronic cough unchanged from baseline with scant sputum production. He is requesting his cpap qhs and says he left his cpap machine in [place]. He denies bilateral UE/LE paresthesias, weakness, or numbness. He admits to occasional pain in his LE when he ambulates, but no other complaints. Home Medications Scheduled Tiotropium [place] (Spiriva) 18 Mcg Cap.w.dev, 1 INHALATION INH DAILY, (Reported) Scheduled PRN Ipratropium/Albuterol Sulfate (Combivent Respimat 20-100 Mcg) 4 Gm Mist.inhal, 1 PUFF INH QID PRN for SHORTNESS OF BREATH, (Reported) Allergies Coded Allergies: morphine (Verified Adverse Reaction, Intermediate, convulsions, 12/05/18) Past Medical History COPD Bipolar disorder Suicidal Ideation chronic neck and back pain KEENAN on CPAP atyypical chest pain with near-syncope, negative wang [facility] 11/2018 Past Surgical History spinal cord stimulator cervical spine fusion Family History mother age 50 cervical cancer father age 68 massive [place], CAD Social History * Smoker: current smoker, less than 1 pack/day, cigarettes, other Alcohol: Denies Drugs: denies 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 moist/pink, Pharynx Normal Neck Exam: Positive: Supple; Negative: JVD, thyromegaly Chest Exam: Positive: Clear to auscultation, Normal air movement Heart Exam: Positive: Rate Normal, Regular Rhythm, Normal S1, Normal S2; Negative: Murmurs, Rubs Abdomen Exam: Positive: Normal bowel sounds, Soft; Negative: Tenderness, Hepatospenomegaly Extremity Exam: Positive: Normal pulses; Negative: Clubbing, Cyanosis, Edema Skin Exam: Positive: tattoos on right neck Nl turgor and temperature; Negative: Breakdown, Lesion Neuro Exam: Positive: Normal Gait, Normal Speech, Cranial Nerves 3-12 NL, Reflexes 2+ LABORATORY DATA, IMAGING STUDIES: PLS SEE BELOW ASSESSMENT AND PLAN: 48 y/o white male with past medical history of copd, chronic pain with a spinal stimulator, cervical fusion, recently discharged from [facility] for atypical chest pain and near syncopal episode, with negative workup c/o suicidal ideation and diagnosed with bipolar disorder. [facility] He c/o a nxieyt, poor appetite, and difficulty sleeping. He denies any headache, changes in vision, blurred vision,diplopia, scotomas, n/v/d/abdpain, dysuria, urgency,frequency, wt loss/wt gain, brbpr, melena, black tarry stools, chest pain,pressure,tightness,sob. He has a chronic cough unchanged from baseline with scant sputum production. He is requesting his cpap qhs and says he left his cpap machine in [place]. He denies bilateral UE/LE paresthesias, weakness, or numbness. no other complaints. Bipolar disorder with suicide ideation -mgt per primary team Insomnia -defer to psychiatrist Atypical Chest pain with near syncope -negative workup and cleared medically 11/2018 -no recurrent symptoms Active smoker -nicotine patch -tobacco cessation counselling provided copd continue spiriva and combivent claudication outpatient ischemic eval and vascular eval Poor appetite -megace Plan / VTE VTE Prophylaxis Ordered?: Yes Vital Signs Vital Signs Date Time Temp Pulse Resp B/P (MAP) Pulse Ox O2 Delivery O2 Flow Rate FiO2 12/10/18 15:13 86.8 78 20 135/79 (97) Home Medications Scheduled Quetiapine Fumarate (Quetiapine Fumarate) 50 Mg Tablet, 50 MG PO QHS Tiotropium [place] (Spiriva) 18 Mcg Cap.w.dev, 1 INHALATION INH DAILY Scheduled PRN Ipratropium/Albuterol Sulfate (Combivent Respimat 20-100 Mcg) 4 Gm Mist.inhal, 1 PUFF INH QID PRN for SHORTNESS OF BREATH Allergies Coded Allergies: morphine (Verified Adverse Reaction, Intermediate, convulsions, 12/05/18) A-FIB/CHADSVASC A-FIB History Current/History of A-Fib/PAF?: No Current PO Anticoag Therapy: No SARAH LEA MD Dec 10, 2018 15:21
[2018-12-10] MEDS: NICOTINE 7 MG/24 HR TRANSDERMAL TD SCH (20:26)
[2018-12-11 06:46] VITALS: BP 127/80
[2018-12-11] MEDS: MEGESTROL 40 MG TAB PO SCH (08:36)
[2018-12-11] MEDS: NICOTINE 7 MG/24 HR TRANSDERMAL TD SCH (08:36)
[2018-12-11] MEDS: TIOTROPIUM INHALER/CAPSULE (SPIRIVA) INH SCH (08:36)
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
[2018-12-11] MEDS ORDERED: FLUoxetine 10 MG CAP PO ONE (12:00)
[2018-12-11] MEDS ORDERED: HALOPERIDOL 5 MG TAB PO ONE (12:00)
[2018-12-11 18:22] VITALS: BP 158/79
[2018-12-11] MEDS: HALOPERIDOL 5 MG TAB PO SCH (21:46)
[2018-12-12 06:59] VITALS: BP 134/85
[2018-12-12] MEDS: MEGESTROL 40 MG TAB PO SCH (09:31)
[2018-12-12] MEDS: HALOPERIDOL 5 MG TAB PO SCH ×2 (09:31→20:43)
[2018-12-12] MEDS: FLUoxetine 10 MG CAP PO SCH (09:31)
[2018-12-12] MEDS: TIOTROPIUM INHALER/CAPSULE (SPIRIVA) INH SCH (09:32)
[2018-12-12] MEDS: NICOTINE 7 MG/24 HR TRANSDERMAL TD SCH (09:32)
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
[2018-12-12 18:16] VITALS: BP 130/91
[2018-12-13 06:44] VITALS: BP 148/86
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
[2018-12-13] MEDS: TIOTROPIUM INHALER/CAPSULE (SPIRIVA) INH SCH (09:49)
[2018-12-13] MEDS: NICOTINE 7 MG/24 HR TRANSDERMAL TD SCH (09:49)
[2018-12-13] MEDS: MEGESTROL 40 MG TAB PO SCH (09:50)
[2018-12-13] MEDS: FLUoxetine 10 MG CAP PO SCH (09:50)
[2018-12-13] MEDS: HALOPERIDOL 5 MG TAB PO SCH ×2 (09:50→21:41)
[2018-12-13 18:00] VITALS: BP 129/79
[2018-12-14 06:39] VITALS: BP 139/87
[2018-12-14] MEDS: MEGESTROL 40 MG TAB PO SCH (08:33)
[2018-12-14] MEDS: TIOTROPIUM INHALER/CAPSULE (SPIRIVA) INH SCH (08:34)
[2018-12-14] MEDS: FLUoxetine 10 MG CAP PO SCH (08:34)
[2018-12-14] MEDS: NICOTINE 7 MG/24 HR TRANSDERMAL TD SCH (08:34)
[2018-12-14] MEDS: HALOPERIDOL 5 MG TAB PO SCH (08:34)
[2018-12-14] MEDS ORDERED: HYDRO50TAB PO (08:39)
[2018-12-14] MEDS ORDERED: HALO5TA PO (08:39)
[2018-12-14] MEDS ORDERED: FLUO10CA8 PO (08:39)
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
== END 2018-12-14 11:00 | disposition home or self-care (01) | DRG 882 ==
LOC: M PSY 14:06
PROVIDERS: ADMIT Psychiatry & Neurology Addiction Medicine; ATTEND Psychiatry & Neurology Psychiatry
DX: F43.10 Post-traumatic stress disorder, unspecified (principal); F17.210 Nicotine dependence, cigarettes, uncomplicated; G47.33 Obstructive sleep apnea (adult) (pediatric); J44.9 Chronic obstructive pulmonary disease, unspecified; M54.2 Cervicalgia; Z87.820 Personal history of traumatic brain injury; Z62.811 Personal history of psychological abuse in childhood; Z62.810 Personal history of physical and sexual abuse in childhood; Z81.1 Family history of alcohol abuse and dependence; Z81.8 Family history of other mental and behavioral disorders; Z79.899 Other long term (current) drug therapy; Z88.5 Allergy status to narcotic agent; Z98.1 Arthrodesis status; Z63.5 Disruption of family by separation and divorce

== ENCOUNTER 2018-12-18 23:14 | Emergency (ER) | payer MEDICARE, MEDICAID ==
[~2018-12-18] VITALS: Ht 165.1 cm; Wt 50.0 kg
[~2018-12-18 23:14] MED LIST changes: +FLUO10CA8 PO; +HALO5TA PO; +HYDRO50TAB PO
[2018-12-18 23:15] VITALS: BP 142/87
== END 2018-12-19 00:41 | disposition left against medical advice (07) ==
LOC: M ED 23:14
DX: Z53.29 Procedure and treatment not carried out because of patient's decision for other reasons (principal)

== ENCOUNTER → 2018-12-24 | Outpatient (REF) | payer MEDICARE, MEDICAID ==
[~2018-12-24] MED LIST changes: +INCR1INH; +[UNRECOGNIZED DRUG - CODE]
[2018-12-24 18:04] LABS: ALBUMIN 3.5 GM/DL (3.2-5.2); ALT/SGPT 216 U/L (12-78); BILIRUBIN,TOTAL 0.6 MG/DL (0.2-1.0); BLOOD UREA NITROGEN 16 MG/DL (7-18); CALCIUM LEVEL 8.8 MG/DL (8.5-10.1); CARBON DIOXIDE LEVEL 31 MEQ/L (21-32); CHLORIDE LEVEL 107 MEQ/L (98-107); CHOLESTEROL LEVEL 225 MG/DL (<200); CHOLESTEROL RISK RATIO 2.368 (<5); CREATININE FOR GFR 0.93 MG/DL (0.70-1.30); GLOMERULAR FILTRATION RATE > 60.0 (>56); GLUCOSE, FASTING 81 MG/DL (70-100); HDL CHOLESTEROL 95 MG/DL (>40); LDL CHOLESTEROL 87 MG/DL (<100); NON-HDL-C 130 MG/DL; POTASSIUM SERUM 4.4 MEQ/L (3.5-5.1); SODIUM LEVEL 142 MEQ/L (136-145); TOTAL PROTEIN 6.5 GM/DL (6.4-8.2); TRIGLYCERIDES LEVEL 217 MG/DL (<150)
[2018-12-24 18:13] LABS: HEMOGLOBIN A1c 5.8 %
[2018-12-26 11:45] LABS: HEPATITIS B SURFACE ANTIBODY NEGATIVE (POSITIVE)
[2018-12-26 11:56] LABS: HEPATITIS B SURFACE ANTIGEN NEGATIVE (NEGATIVE)
[2018-12-26 13:06] LABS: HEPATITIS C VIRUS ABY INDEX > 11.0 INDEX (<0.8)
== END ==
LOC: M LABDRAW1 17:19
PROVIDERS: ATTEND Hospitalist
DX: Z13.1 Encounter for screening for diabetes mellitus (principal); R74.0 Nonspecific elevation of levels of transaminase and lactic acid dehydrogenase [LDH]; Z11.59 Encounter for screening for other viral diseases; Z71.89 Other specified counseling; Z79.899 Other long term (current) drug therapy

== ENCOUNTER 2018-12-26 10:19 | Emergency (ER) | payer MEDICARE, MEDICAID ==
[~2018-12-26] VITALS: Ht 167.6 cm; Wt 50.0 kg
[~2018-12-26 10:19] MED LIST changes: +HYDR1TAB33 PO; -HYDRO50TAB PO; -INCR1INH; -[UNRECOGNIZED DRUG - CODE]
[2018-12-26] MEDS ORDERED: [UNRECOGNIZED DRUG - CODE] (10:34)
[2018-12-26] MEDS ORDERED: INCR1INH (10:34)
[2018-12-26 10:48] LABS: BASO # 0.1 10^3/uL (0.0-0.2); BASO % 0.5 % (0.0-1.0); EOS # 0.3 10^3/uL (0.0-0.50); EOS % 2.5 % (0.0-3.0); HEMATOCRIT 37.6 % (42.0-52.0); LYMPH # 1.8 10^3/uL (1.5-4.5); MEAN CORPUSCULAR HEMOGLOBIN 30.6 pg (27.0-33.0); MEAN CORPUSCULAR HGB CONC 34.6 g/dl (32.0-36.5); MEAN CORPUSCULAR VOLUME 88.5 fl (80.0-96.0); MONO # 1.5 10^3/uL (0.0-0.8); MONO % 14.3 % (0.0-5.0); NEUTROPHILS # 6.5 10^3/uL (1.8-7.7); NEUTROPHILS % 64.3 % (36.0-66.0); PLATELET COUNT, AUTOMATED 291 10^3/uL (150-450); RED BLOOD COUNT 4.25 10^6/uL (4.30-6.10); WHITE BLOOD COUNT 10.2 10^3/uL (4.0-10.0)
--- NOTE | 2018-12-26 11:01 | REP ---
Clinical: Acute chest pain . Comparison: 12/05/2018 . Findings: The mediastinum and cardiac silhouette are stable and within normal limits for portable technique. The lung blanc are clear without acute consolidation, effusion, or pneumothorax. Skeletal structures are intact. Impression: No acute cardiopulmonary process appreciated. Electronically Signed by Dimitri Gaines MD 12/26/2018 10:52 A
[2018-12-26 11:25] LABS: BLOOD UREA NITROGEN 21 MG/DL (7-18); CALCIUM LEVEL 8.7 MG/DL (8.5-10.1); CARBON DIOXIDE LEVEL 26 MEQ/L (21-32); CHLORIDE LEVEL 108 MEQ/L (98-107); CK-MB VALUE MASS 2.5 NG/ML (<3.6); CPK CREATINE PHOSPHOKINASE 32 U/L (39-308); GLOMERULAR FILTRATION RATE > 60.0 (>56); GLUCOSE, FASTING 94 MG/DL (70-100); MB/CK RELATIVE INDEX 7.81 (< OR =4); POTASSIUM SERUM 3.9 MEQ/L (3.5-5.1); SODIUM LEVEL 140 MEQ/L (136-145); TROPONIN I < 0.02 NG/ML (< 0.10)
[2018-12-26 12:00] VITALS: BP 115/67
[2018-12-26 12:27] LABS: FERRITIN 202 NG/ML (26-388); IRON (FE) 61 UG/DL (65-175); TOTAL IRON BINDING CAPACITY 290 UG/DL (250-450)
[2018-12-26 12:34] LABS: VITAMIN B12 LEVEL 442 PG/ML
[2018-12-26 12:35] LABS: FOLATE 8.7 NG/ML
--- NOTE | 2018-12-26 19:56 | ECGEPIP ---
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
--- NOTE | 2018-12-28 21:32 | ECGEPIP ---
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
== END 2018-12-26 13:10 | disposition home or self-care (01) ==
LOC: M ED 10:19
DX: R07.89 Other chest pain (principal); R55 Syncope and collapse; D64.9 Anemia, unspecified; J44.9 Chronic obstructive pulmonary disease, unspecified; I10 Essential (primary) hypertension; I45.10 Unspecified right bundle-branch block; I48.91 Unspecified atrial fibrillation; F17.210 Nicotine dependence, cigarettes, uncomplicated; F20.9 Schizophrenia, unspecified; Z79.51 Long term (current) use of inhaled steroids; Z79.899 Other long term (current) drug therapy; Z88.6 Allergy status to analgesic agent; Z88.8 Allergy status to other drugs, medicaments and biological substances

== ENCOUNTER → 2018-12-28 | Outpatient (REF) | payer MEDICARE, MEDICAID ==
[~2018-12-28] MED LIST changes: -HYDR1TAB33 PO; +HYDRO50TAB PO; +INCR1INH; +[UNRECOGNIZED DRUG - CODE]
[2018-12-28 12:47] LABS: PERCENT SATURATION 28.7 % (19.7-50.0)
[2019-01-01 00:07] LABS: ALPHA 1 ANTITRYPSIN 146 mg/dL (90-200); ANTI-MITOCHONDRIAL ANTIBODY <20.0 Units (0.0-20.0); ANTINUCLEAR ANTIBODIES DIRECT Negative (Negative); CERULOPLASMIN 19.8 mg/dL (16.0-31.0); LIVER-KIDNEY MICROSOMAL ABY <20.1 Units (0.0-20.0); TRANSFERRIN 248 mg/dL (200-370)
== END ==
LOC: M LABDRAW1 09:25
DX: R74.0 Nonspecific elevation of levels of transaminase and lactic acid dehydrogenase [LDH] (principal)

== ENCOUNTER → 2019-02-11 | Outpatient (REF) | payer MEDICARE, MEDICAID ==
[~2019-02-11] MED LIST changes: +HYDR1TAB33 PO; -HYDRO50TAB PO
[2019-02-15 11:10] LABS: HEPATITIS C VIRUS GENOTYPE 1a (.)
== END ==
LOC: M LABDRAW1 11:58
PROVIDERS: ATTEND Family Medicine
DX: R76.8 Other specified abnormal immunological findings in serum (principal)

== ENCOUNTER 2019-07-09 09:32 | Emergency (ER) | payer MEDICARE, MEDICAID ==
[~2019-07-09] VITALS: Ht 165.1 cm; Wt 45.8 kg
[~2019-07-09 09:32] MED LIST changes: +FLUO10CA15 PO; -FLUO10CA8 PO
[2019-07-09] MEDS ORDERED: FLUO20CA22 PO (09:46)
[2019-07-09] MEDS ORDERED: OLAN5ZYD (09:46)
[2019-07-09] MEDS ORDERED: SPIR1CAP (09:46)
[2019-07-09] MEDS ORDERED: COMBAER6 (09:46)
[2019-07-09] MEDS ORDERED: ALBU8.5H (09:46)
[2019-07-09 10:21] LABS: BASO # 0.1 10^3/uL (0.0-0.2); BASO % 0.7 % (0.0-1.0); EOS # 0.2 10^3/uL (0.0-0.5); EOS % 2.5 % (0.0-3.0); HEMATOCRIT 46.5 % (42.0-52.0); HEMOGLOBIN 15.5 g/dl (13.5-17.5); LYMPH # 1.7 10^3/uL (1.5-5.0); LYMPH % 22.2 % (24.0-44.0); MEAN CORPUSCULAR HEMOGLOBIN 30.7 pg (27.0-33.0); MEAN CORPUSCULAR HGB CONC 33.3 g/dl (32.0-36.5); MEAN CORPUSCULAR VOLUME 92.1 fl (80.0-96.0); MONO # 1.5 10^3/uL (0.0-0.8); MONO % 19.4 % (0.0-5.0); NEUTROPHILS # 4.1 10^3/uL (1.5-8.5); NEUTROPHILS % 54.9 % (36.0-66.0); PLATELET COUNT, AUTOMATED 526 10^3/uL (150-450); RED BLOOD COUNT 5.05 10^6/uL (4.30-6.10); WHITE BLOOD COUNT 7.5 10^3/uL (4.0-10.0)
[2019-07-09] MEDS ORDERED: IPRATROPIUM 0.5MG/ALBUTEROL 2.5MG INH SOL UD 3ML (DUONEB)(J7620) NEB ONE (11:00)
[2019-07-09] MEDS ORDERED: ALBUTEROL SULFATE 2.5 MG/0.5 ML INH NEB SOLN INH ONE (11:00)
--- NOTE | 2019-07-09 11:23 | REP ---
Clinical: Cough and dyspnea. Technique: PA and lateral. Comparison: 12/26/2018. Findings: Right middle lobe atelectasis/infiltrate. No effusion. No pneumothorax. Cardiac silhouette is normal. Skeletal structures are intact. Impression: Right middle lobe atelectasis/infiltrate. Follow-up to resolution. Electronically Signed by Dimitri Gaines MD 07/09/2019 11:15 A
[2019-07-09 11:30] LABS: BLOOD UREA NITROGEN 24 MG/DL (7-18); CALCIUM LEVEL 8.2 MG/DL (8.5-10.1); CARBON DIOXIDE LEVEL 27 MEQ/L (21-32); CHLORIDE LEVEL 105 MEQ/L (98-107); CREATININE FOR GFR 0.71 MG/DL (0.70-1.30); GLOMERULAR FILTRATION RATE > 60.0 (>56); GLUCOSE, FASTING 92 MG/DL (70-100); SODIUM LEVEL 139 MEQ/L (136-145)
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
[2019-07-09 12:06] LABS: INFLUENZA A AMPLIFICATION NEGATIVE (NEGATIVE); INFLUENZA B AMPLIFICATION NEGATIVE (NEGATIVE)
[2019-07-09] MEDS ORDERED: DOXY100C37 PO (12:41)
[2019-07-09] MEDS ORDERED: PRED10TA2 PO (12:41)
[2019-07-09] MEDS ORDERED: ALBUTEROL 90 MCG/ACT 8GM HFA INHALER INH ONE (12:45)
[2019-07-09] MEDS ORDERED: DOXYCYCLINE HYCLATE 100 MG TAB PO ONE (13:00)
[2019-07-09] MEDS ORDERED: dexameTHASONE 20 MG/5 ML VIAL (J1100) IV ONE (13:00)
[2019-07-09 13:04] VITALS: BP 129/73
--- NOTE | 2019-07-09 20:02 | ECGEPIP ---
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
--- NOTE | 2019-07-11 19:22 | ED PDOC ---
Post-Departure Follow-Up dr rick english faxed fomral report of cxr for fu Adin Boo MD Jul 11, 2019 19:22
== END 2019-07-09 14:20 | disposition home or self-care (01) ==
LOC: EDBD 09:32 → M ED 09:32
DX: J18.9 Pneumonia, unspecified organism (principal); J45.909 Unspecified asthma, uncomplicated; R94.31 Abnormal electrocardiogram [ECG] [EKG]; J44.9 Chronic obstructive pulmonary disease, unspecified; F31.9 Bipolar disorder, unspecified; G47.30 Sleep apnea, unspecified; F17.210 Nicotine dependence, cigarettes, uncomplicated; Z88.5 Allergy status to narcotic agent; Z88.8 Allergy status to other drugs, medicaments and biological substances; Z79.51 Long term (current) use of inhaled steroids; Z79.899 Other long term (current) drug therapy
CPT/HCPCS: 36415; 70450; 71046; 80048; 85025; 87502; 93005; 93041; 94640; 94760; 96374; 99285; J1100

== ENCOUNTER 2019-07-18 17:28 | Emergency (ER) | payer MEDICARE, MEDICAID ==
[~2019-07-18] VITALS: Ht 165.1 cm; Wt 48.5 kg
[~2019-07-18 17:28] MED LIST changes: +ALBU8.5H; +DOXY100C37 PO; +FLUO20CA22 PO; +OLAN5ZYD; +PRED10TA2 PO
[2019-07-18 21:08] VITALS: BP 145/82
== END 2019-07-18 21:42 | disposition home or self-care (01) ==
LOC: M ED 17:28
DX: F41.9 Anxiety disorder, unspecified (principal); Z60.9 Problem related to social environment, unspecified; F33.9 Major depressive disorder, recurrent, unspecified; F43.10 Post-traumatic stress disorder, unspecified; J44.1 Chronic obstructive pulmonary disease with (acute) exacerbation; F17.210 Nicotine dependence, cigarettes, uncomplicated; Z88.5 Allergy status to narcotic agent; Z79.51 Long term (current) use of inhaled steroids; Z79.899 Other long term (current) drug therapy
CPT/HCPCS: 99284; G0463

== ENCOUNTER 2020-03-25 20:17 | Emergency (ER) | payer MEDICARE, MEDICAID ==
[~2020-03-25] VITALS: Ht 165.1 cm; Wt 45.5 kg
[~2020-03-25 20:17] MED LIST changes: -FLUO10CA15 PO; +FLUO10CA16 PO
[2020-03-25] MEDS ORDERED: dexameTHASONE 20MG/5ML VIAL (J1100 PER 1MG) IV ONE (20:45)
[2020-03-25] MEDS: COMBIVENT RESPIMAT 100-20MCG INHALER 4GM INH SCH ×3 (20:54→21:37)
[2020-03-25 21:07] LABS: BASO # 0.1 10^3/uL (0.0-0.2); BASO % 0.5 % (0.0-1.0); EOS # 0.3 10^3/uL (0.0-0.5); EOS % 2.2 % (0.0-3.0); HEMATOCRIT 44.7 % (42.0-52.0); HEMOGLOBIN 14.6 g/dl (13.5-17.5); LYMPH # 2.8 10^3/uL (1.5-5.0); LYMPH % 25.1 % (24.0-44.0); MEAN CORPUSCULAR HEMOGLOBIN 28.9 pg (27.0-33.0); MEAN CORPUSCULAR HGB CONC 32.7 g/dl (32.0-36.5); MEAN CORPUSCULAR VOLUME 88.3 fl (80.0-96.0); MONO % 17.8 % (0.0-5.0); NEUTROPHILS # 6.1 10^3/uL (1.5-8.5); NEUTROPHILS % 53.7 % (36.0-66.0); PLATELET COUNT, AUTOMATED 323 10^3/uL (150-450); RED BLOOD COUNT 5.06 10^6/uL (4.30-6.10); WHITE BLOOD COUNT 11.3 10^3/uL (4.0-10.0)
--- NOTE | 2020-03-25 21:29 | REPVR ---
PROCEDURE INFORMATION: Exam: XR Left Hand Exam date and time: 03/25/2020 9:14 PM Age: 50 years old Clinical indication: Other: Pain; Additional info: Pain/injury TECHNIQUE: Imaging protocol: XR Left hand. Views: 3 or more views. COMPARISON: No relevant prior studies available. FINDINGS: Bones/joints: Dorsal soft tissue swelling is present at the level of the distal metacarpals. Bony structures are aligned normally. Degree of osseous mineralization is age-appropriate. No acute fracture. Old healed fifth metacarpal neck fracture is present. No concerning osseous lesion. Joint spaces of the hand are well-maintained. Soft tissues: No evidence of soft tissue foreign body. IMPRESSION: 1. Soft tissue injury to the dorsum of the hand at the metacarpal level with possible skin laceration but no foreign body. 2. No underlying osseous abnormality Electronically signed by: Sunny Chan On 03/25/2020 21:29:31 PM
--- NOTE | 2020-03-25 21:30 | REPVR ---
PROCEDURE INFORMATION: Exam: XR Left Wrist Exam date and time: 03/25/2020 9:14 PM Age: 50 years old Clinical indication: Other: Injury; Additional info: Pain/injury TECHNIQUE: Imaging protocol: XR Left wrist. Views: 3 or more views. COMPARISON: No relevant prior studies available. FINDINGS: Bones/joints: No acute fracture. Old healed fifth metacarpal neck fracture is present. Carpal bones align normally. No bone lesion. Scaphoid appears intact. Joint spaces are well-maintained for age. Soft tissues: Dorsal soft tissue swelling is present. IMPRESSION: Mild dorsal soft tissue swelling of the wrist. No underlying acute fracture or osseous malalignment Electronically signed by: Sunny Chan On 03/25/2020 21:30:28 PM
--- NOTE | 2020-03-25 21:32 | REPVR ---
PROCEDURE INFORMATION: Exam: XR Chest, 1 View Exam date and time: 03/25/2020 9:14 PM Age: 50 years old Clinical indication: Other: Cough; Additional info: Dyspnea/cough TECHNIQUE: Imaging protocol: XR of the chest Views: 1 view. COMPARISON: CR Chest, 2 view PA, Lat 07/09/2019 10:12 AM FINDINGS: Lungs: Degree of lung inflation is normal. No evidence of pulmonary edema. No focal consolidation or parenchymal lung mass. Probable apical emphysematous changes Pleural space: No pleural effusion or pneumothorax. Heart/Mediastinum: Cardiac silhouette appears normal. No adenopathy or hilar mass. Bones/joints: Osseous structures show no concerning abnormality. IMPRESSION: No acute or focal cardiopulmonary process. Electronically signed by: Sunny Chan On 03/25/2020 21:31:59 PM
[2020-03-25 21:39] LABS: ALT/SGPT 38 U/L (12-78); BLOOD UREA NITROGEN 16 MG/DL (7-18); CALCIUM LEVEL 8.9 MG/DL (8.5-10.1); CARBON DIOXIDE LEVEL 28 MEQ/L (21-32); CHLORIDE LEVEL 107 MEQ/L (98-107); CPK CREATINE PHOSPHOKINASE 24 U/L (39-308); CREATININE FOR GFR 0.92 MG/DL (0.70-1.30); GLOMERULAR FILTRATION RATE > 60.0 (>56); GLUCOSE, FASTING 84 MG/DL (70-100); POTASSIUM SERUM 4.1 MEQ/L (3.5-5.1); SODIUM LEVEL 141 MEQ/L (136-145)
[2020-03-25 21:40] LABS: ALBUMIN 3.2 GM/DL (3.2-5.2); BILIRUBIN,DIRECT < 0.1 MG/DL (0.0-0.2); BILIRUBIN,TOTAL 0.3 MG/DL (0.2-1.0); MB/CK RELATIVE INDEX 8.33 (< OR =4); NT-PRO BNP 43 PG/ML (<125); TOTAL PROTEIN 6.5 GM/DL (6.4-8.2); TROPONIN I < 0.02 NG/ML (< 0.10)
[2020-03-25] MEDS ORDERED: DOXY100C37 PO (22:40)
[2020-03-25] MEDS ORDERED: PRED20TA PO (22:40)
[2020-03-25 22:45] VITALS: BP 131/76
[2020-03-25] MEDS ORDERED: DOXYCYCLINE HYCLATE 100MG TABLET PO ONE (22:45)
[2020-03-25] MEDS ORDERED: ALBUTEROL 90 MCG/ACT 8GM HFA INHALER INH ONE (22:45)
--- NOTE | 2020-03-26 08:07 | ECGEPIP ---
[facility] - ED Test Date: 2020-03-25 Pat Name: TONY GONZALEZ Department: Room: - Gender: Male [employer]: : 1970 Requested By: KYLE Oliver Order Number: [id number] Reading MD: Rachell Garcia Measurements Intervals [place] Rate: 87 P: 78 NM: 136 QRS: -83 QRSD: 75 T: 78 QT: 337 QTc: 406 Interpretive Statements SINUS RHYTHM POSSIBLE LEFT ATRIAL ENLARGEMENT MARKED LEFT AXIS DEVIATION PATTERN CONSISTENT WITH PULMONARY DISEASE POSSIBLE RIGHT VENTRICULAR CONDUCTION DELAY SEPTAL MYOCARDIAL INFARCTION, OF INDETERMINATE AGE DECREASED RATE 07/09/19 Electronically Signed on 03-26-2020 8:06:59 EDT by Rachell Garcia
== END 2020-03-25 22:55 | disposition home or self-care (01) ==
LOC: M ED 20:17
DX: J44.1 Chronic obstructive pulmonary disease with (acute) exacerbation (principal); M79.642 Pain in left hand; M79.9 Soft tissue disorder, unspecified; R94.31 Abnormal electrocardiogram [ECG] [EKG]; F31.9 Bipolar disorder, unspecified; G47.33 Obstructive sleep apnea (adult) (pediatric); F17.200 Nicotine dependence, unspecified, uncomplicated; Z88.6 Allergy status to analgesic agent; Z79.51 Long term (current) use of inhaled steroids; Z79.899 Other long term (current) drug therapy
CPT/HCPCS: 71045; 73110; 73130; 80048; 80076; 82550; 82553; 83880; 84484; 85025; 87040; 93005; 93041; 94640; 94760; 96374; 99285; J1100

== ENCOUNTER 2022-08-22 09:09 | Emergency (ER) | payer OTHER, MEDICAID ==
[~2022-08-22] VITALS: Ht 165.1 cm; Wt 45.4 kg
[~2022-08-22 09:09] MED LIST changes: +DOXY-443 PO; -DOXY100C37 PO; -FLUO10CA16 PO; +FLUO10CA18 PO; -HALO5TA PO; +HALO5TAB33 PO; +PRED20TA PO; +QUET50TA4 PO; -QUET5TAB PO; +RISP2TAB; -[UNRECOGNIZED DRUG - CODE]
[2022-08-22 10:46] LABS: BASO % 0.4 % (0.0-1.0); EOS % 0.1 % (0.0-3.0); HEMATOCRIT 47.8 % (42.0-52.0); LYMPH # 1.3 10^3/uL (1.5-5.0); LYMPH % 12.3 % (24.0-44.0); MEAN CORPUSCULAR HEMOGLOBIN 30.4 pg (27.0-33.0); MEAN CORPUSCULAR HGB CONC 33.5 g/dl (32.0-36.5); MEAN CORPUSCULAR VOLUME 90.7 fl (80.0-96.0); MONO # 1.3 10^3/uL (0.0-0.8); MONO % 11.7 % (2.0-8.0); NEUTROPHILS % 75.1 % (36.0-66.0); PLATELET COUNT, AUTOMATED 407 10^3/uL (150-450); RED BLOOD COUNT 5.27 10^6/uL (4.30-6.10); WHITE BLOOD COUNT 10.6 10^3/uL (4.0-10.0)
[2022-08-22 11:33] LABS: ALKALINE PHOSPHATASE 69 U/L (46-116); ALT/SGPT 35 U/L (7.0-40); AST/SGOT 33 U/L (<34); BILIRUBIN,DIRECT 0.3 MG/DL (<0.4); BILIRUBIN,TOTAL 1.5 MG/DL (0.3-1.2); BLOOD UREA NITROGEN 24 MG/DL (9-23); CALCIUM LEVEL 10.4 MG/DL (8.5-10.1); CARBON DIOXIDE LEVEL 28 MMOL/L (20-31); CHLORIDE LEVEL 100 MMOL/L (98-107); CREATININE FOR GFR 0.77 MG/DL (0.70-1.30); GLOMERULAR FILTRATION RATE > 60.0 (>56); GLUCOSE, FASTING 82 MG/DL (60-100); POTASSIUM SERUM 4.4 MMOL/L (3.5-5.1); SODIUM LEVEL 140 MMOL/L (136-145); TOTAL PROTEIN 8.1 G/DL (5.7-8.2)
[2022-08-22 11:44] LABS: RSV AMPLIFICATION NEGATIVE (NEGATIVE)
[2022-08-22 13:45] VITALS: BP 169/81
[2022-08-22] MEDS ORDERED: ISOVUE-370 76% 100ML VIAL As Ordered ONE (14:39)
== END 2022-08-22 15:36 | disposition left against medical advice (07) ==
LOC: M ED 09:09
DX: R06.00 Dyspnea, unspecified (principal); I10 Essential (primary) hypertension; J44.9 Chronic obstructive pulmonary disease, unspecified; Z87.891 Personal history of nicotine dependence; Z88.5 Allergy status to narcotic agent; Z88.8 Allergy status to other drugs, medicaments and biological substances; Z53.9 Procedure and treatment not carried out, unspecified reason

== ENCOUNTER → 2025-01-15 | Outpatient (REF) ==
[~2025-01-15] MED LIST changes: +ALB2.5NEB NEB; +ARFO15VI18; +BUSP5TA; +DOXY-441 PO; -DOXY-443 PO; +FLUO-290 PO; +FLUO-365 PO; -FLUO10CA18 PO; -FLUO20CA22 PO; +IPRA0.00 NEB; +METH-1386; +METO1TAB32; +PANT40TA29; +SPIR12.9; +TAMS1CAP17
== END ==
LOC: M RAD 12:08
PROVIDERS: ATTEND Internal Medicine
DX: R52 Pain, unspecified (principal)

== ENCOUNTER → 2025-03-18 | Outpatient (CLI) | payer MEDICARE ==
[2025-03-18 15:53] LABS: BASO # 0.1 10^3/uL (0.0-0.2); BASO % 1.2 % (0.0-1.0); EOS # 0.2 10^3/uL (0.0-0.5); EOS % 2.8 % (0.0-3.0); LYMPH # 1.6 10^3/uL (1.5-5.0); LYMPH % 24.5 % (24.0-44.0); MONO # 0.9 10^3/uL (0.0-0.8); MONO % 14.2 % (2.0-8.0); NEUTROPHILS # 3.7 10^3/uL (1.5-8.5); NEUTROPHILS % 57.1 % (36.0-66.0); PLATELET COUNT, AUTOMATED 405 10^3/uL (150-450)
[2025-03-18 16:15] LABS: ALT/SGPT 74 U/L (7.0-40); AST/SGOT 43 U/L (<34); CALCIUM LEVEL 9.4 MG/DL (8.5-10.1); CARBON DIOXIDE LEVEL 33 MMOL/L (20-31); CHLORIDE LEVEL 100 MMOL/L (98-107); CREATININE FOR GFR 0.72 MG/DL (0.70-1.30); GLOMERULAR FILTRATION RATE > 90.0 (>56); POTASSIUM SERUM 4.6 MMOL/L (3.5-5.1); SODIUM LEVEL 141 MMOL/L (136-145)
== END ==
LOC: M LAB 15:16
PROVIDERS: ATTEND Internal Medicine Medical Oncology
DX: D69.59 Other secondary thrombocytopenia (principal)